=== PATIENT | male | born 1950 | race Caucasian/White ===

== ENCOUNTER 2017-10-29 15:07 | Emergency (ER) | payer MEDICARE, MEDICAID ==
--- NOTE | 2017-10-29 15:41 | ED Physician Chart ---
ED Chief Complaint/HPI - Patient Information Date Seen:: 10/29/17 Time Seen:: 15:30 Chief Complaint:: weight loss sudden Allergies:: Allergies Allergy/AdvReac Type Severity Reaction Status Date / Time No Known Allergies Allergy Verified 03/06/17 21:24 Vitals:: Vital Signs - 8 hr 10/29/17 15:26 Temp 99 F HR 69 RR 16 BP 104/69 O2 Sat % 97 Historian:: EMS Review:: Nurse's Note Reviewed <Damien Arriaga - Last Filed: 10/29/17 15:41> - Patient Information Allergies:: Allergies Allergy/AdvReac Type Severity Reaction Status Date / Time No Known Allergies Allergy Verified 03/06/17 21:24 Vitals:: Vital Signs - 8 hr 10/29/17 10/29/17 10/29/17 15:26 19:30 21:45 Temp 99 F 98.1 F 98.2 F HR 69 76 63 RR 16 18 17 BP 104/69 113/57 118/66 O2 Sat % 97 96 96 <Elvira Hernandez - Last Filed: 10/29/17 22:32> ED Review of Systems - Review of Systems General/Constitutional: No fever (hx unreliable aggitated schizophrenia) <Damien Arriaga - Last Filed: 10/29/17 15:41> ED Past Medical History - Past Medical History Past Medical History: HTN, PUD/GERD, Other (bipolar blind hx cva) <Damien Arriaga - Last Filed: 10/29/17 15:41> Family Medical History - Family Member Mother History Unknown: Yes <Damien Arriaga - Last Filed: 10/29/17 15:41> ED Physical Exam - Physical Examination General/Constitutional: Alert, No distress, Non-toxic appearing Head: Atraumatic Skin: No rash ENMT: External ears, nose nl Neck: Nontender Respiratory: Nl effort/Exclusion Cardio Vascular: RRR GI: No tenderness/rebounding/guarding : No CVA tenderness Extremities: No tenderness or effusion (episodic aggitation questionable jugement) <Damien Arriaga - Last Filed: 10/29/17 15:41> ED Labs/Radiology/EKG Results - Lab Results Results: Laboratory Tests 10/29/17 10/29/17 10/29/17 15:45 15:45 15:45 WBC 7.9 RBC 4.44 Hgb 13.6 Hct 40.5 L MCV 91.1 MCH 30.7 MCHC Differential 33.7 RDW 12.6 Plt Count 273 MPV 7.3 Neutrophils % 65.3 Lymphocytes % 24.1 Monocytes % 8.5 Eosinophils % 1.8 Basophils % 0.3 Sodium 137 Potassium 4.3 Chloride 103 Carbon Dioxide 27.1 Anion Gap 11.2 BUN 23 Creatinine 1.0 Est GFR ( Amer) > 60.0 Est GFR (Non-Af Amer) > 60.0 BUN/Creatinine Ratio 23.0 Glucose 115 H Calcium 9.2 Total Bilirubin 0.5 Direct Bilirubin 0.14 AST 18 ALT 18 Alkaline Phosphatase 86 Total Protein 6.3 Albumin 4.2 Globulin 2.1 Albumin/Globulin Ratio 2.0 H TSH 2.47 <Elvira Hernandez - Last Filed: 10/29/17 22:32> ED Septic Shock - <6hrs of presentation: Vital Signs: Vital Signs - 8 hr 10/29/17 15:26 Temp 99 F HR 69 RR 16 BP 104/69 O2 Sat % 97 <Damien Arriaga - Last Filed: 10/29/17 15:41> - . Is Septic Shock (SBP<90, OR Lactate>4 mmol\L) present?: No - <6hrs of presentation: Vital Signs: Vital Signs - 8 hr 10/29/17 10/29/17 10/29/17 15:26 19:30 21:45 Temp 99 F 98.1 F 98.2 F HR 69 76 63 RR 16 18 17 BP 104/69 113/57 118/66 O2 Sat % 97 96 96 <Elvira Hernandez - Last Filed: 10/29/17 22:32> ED Reassessment (Disposition) - Reassessment Reassessment:: Dr. Hernandez assumed care at 19:00. Dr. Hernandez spoke with Dr. Hill who thought that patient did not meet admission criteria given unremarkable labs. Dr. Hill recommended discharging patient back to SNF. Reassessment Condition:: Unchanged - Patient Disposition Discharge/Transfer:: [facility] <Elvira Hernandez - Last Filed: 10/29/17 22:32> ED Discharge Plan <Damien Arriaga - Last Filed: 10/29/17 15:41> <Elvira Hernandez - Last Filed: 10/29/17 22:32> - Patient Disposition Admit/Discharge/Transfer: PT DISCHARGED HOME Instructions: Weakness, [id number] Additional Instructions: follow up with primary medical doctor MELANIE
[2017-10-29 16:02] LABS: % BASOPHILS 0.3 % (0.0-2.0); % EOSINOPHILS 1.8 % (0.0-5.0); % LYMPHOCYTES 24.1 % (20.0-50.0); % MONOCYTES 8.5 % (2.0-10.0); % NEUTROPHILS 65.3 % (40.0-80.0); EOSINOPHILE ABSOLUTE 0.1 Th/cmm (0.1-0.4); HEMATOCRIT 40.5 % (41.0-60); HEMOGLOBIN 13.6 gm/dL (12-16); LYMPHOCYTE ABSOLUTE 1.9 Th/cmm (1.5-3.0); MEAN CELL VOLUME 91.1 fl (80-99); MEAN CORPUSCULAR HEMOGLOBIN 30.7 pg (27.0-31.0); MEAN CORPUSCULAR HGB CONC 33.7 pg (28.0-36.0); MEAN PLATELET VOLUME 7.3 fl; MONOCYTE ABSOLUTE 0.7 Th/cmm (0.3-1.0); NEUTROPHILE ABSOLUTE 5.2 Th/cmm (1.8-8.0); PLATELET COUNT 273 Th/cmm (150-400); RED BLOOD COUNT 4.44 Mil/cmm (3.80-5.80); RED CELL DISTRIBUTION WIDTH 12.6 % (11.5-20.0); WHITE BLOOD COUNT 7.9 Th/cmm (4.8-10.8)
[2017-10-29 16:18] LABS: ALBUMIN 4.2 gm/dL (4.2-5.5); ALKALINE PHOSPHATASE 86 U/L (34-104); ANION GAP 11.2 (7.0-16.0); BILIRUBIN,DIRECT 0.14 mg/dL (0.0-0.2); BILIRUBIN,TOTAL 0.5 mg/dL (0.3-1.0); BUN - UREA NITROGEN 23 mg/dL (7-25); CALCIUM SERUM 9.2 mg/dL (8.6-10.3); CARBON DIOXIDE 27.1 mEq/L (21.0-31.0); CHLORIDE 103 mEq/L (98-107); GFR AFRICAN-AMERICAN > 60.0 ml/min (>90); GFR NON AFRICAN-AMERICAN > 60.0 ml/min; GLUCOSE 115 mg/dL (70-105); POTASSIUM SERUM 4.3 mEq/L (3.5-5.1); SGOT 18 U/L (13-39); SGPT/ALT 18 U/L (7-52); SODIUM SERUM 137 mEq/L (136-145); TOTAL PROTEIN,SERUM 6.3 gm/dL (6.0-8.3)
== END 2017-10-29 19:45 | disposition home or self-care (01) ==
LOC: ER 15:07
DX: R63.4 Abnormal weight loss (principal); I10 Essential (primary) hypertension; K21.9 Gastro-esophageal reflux disease without esophagitis
CPT/HCPCS: 36415-UA; 71045-TC; 80048-TC; 80076-TC; 84439-90; 84443-TC; 85025-TC; Z7502

== ENCOUNTER 2017-10-31 20:52 | Inpatient (IN) | payer MEDICARE, MEDICAID ==
--- NOTE | 2017-10-31 21:24 | ED Physician Chart ---
ED Chief Complaint/HPI - Patient Information Date Seen:: 10/31/17 Time Seen:: 21:15 Chief Complaint:: aggressive behavior History of Present Illness:: Patient reportedly was striking out at staff at his extended care facility. Allergies:: Allergies Allergy/AdvReac Type Severity Reaction Status Date / Time No Known Allergies Allergy Verified 10/31/17 20:54 Vitals:: Vital Signs - 8 hr 10/31/17 20:54 Temp 98.1 F HR 62 RR 18 BP 125/70 O2 Sat % 99 Historian:: EMS Review:: Transfer documents Reviewed ED Review of Systems - Review of Systems General/Constitutional: No fever, No chills, No weight loss, No weakness, No diaphoresis, No edema, No loss of appetite Skin: No skin lesions, No rash, No bruising Head: No headache, No light-headedness Eyes: No loss of vision, No pain, No diplopia ENT: No earache, No nasal drainage, No sore throat, No tinnitus Neck: No neck pain, No swelling, No thyromegaly, No stiffness, No mass noted Cardio Vascular: No chest pain, No palpitations, No PND, No orthopnea, No edema Pulmonary: No SOB, No cough, No sputum, No wheezing GI: No nausea, No vomiting, No diarrhea, No pain, No melena, No hematochezia, No constipation, No hematemesis G/U: No dysuria, No frequency, No hematuria Musculoskeletal: No bone or joint pain, No back pain, No muscle pain Endocrine: No polyuria, No polydipsia Psychiatric: Prior psych history Hematopoietic: No bruising, No lymphadenopathy Allergic/Immuno: No urticaria, No angioedema Neurological: No syncope, No focal symptoms, No weakness, No paresthesia, No headache, No seizure, No dizziness, No confusion, No vertigo ED Past Medical History - Past Medical History Past Medical History: HTN, PUD/GERD, Seizures, Other (blind; hyperlipidemia; depression; psychosis; dysphagia) Family History: Other (unknown) Social History: Care Facility Surgical History: other (unknown) Psychiatricy History: Depression, Other (psychosis) Medication: Reviewed Family Medical History - Family Member Mother History Unknown: Yes ED Physical Exam - Physical Examination Other Gen/Cons comments:: Chronically ill-appearing; nonverbal Head: Atraumatic Eyes: Lids, conjuctiva normal Other Eyes comments:: Bilateral cataracts Skin: Nl inspection, No rash ENMT: External ears, nose nl Other ENMT comments:: Edentulous Neck: No nuchal rigidity Respiratory: Nl effort/Exclusion, Clear to Auscultation Other Cardio Vascular comments:: Heart sounds inaudible; pulse regular GI: No tenderness/rebounding/guarding, Nondistended, No mass/bruits : No CVA tenderness Extremities: Normal digits & nails Neuro/Psych: No focal deficits ED Labs/Radiology/EKG Results - Lab Results Results: Laboratory Results - last 24 hr 10/31/17 10/31/17 10/31/17 21:41 21:41 21:41 WBC 6.9 RBC 4.53 Hgb 14.0 Hct 41.6 MCV 91.8 MCH 30.9 MCHC Differential 33.6 RDW 12.9 Plt Count 252 MPV 7.5 Neutrophils % 60.2 Lymphocytes % 29.2 Monocytes % 7.7 Eosinophils % 2.5 Basophils % 0.4 Sodium 138 Potassium 4.0 Chloride 102 Carbon Dioxide 29.4 Anion Gap 10.6 BUN 19 Creatinine 0.7 Est GFR ( Amer) > 60.0 Est GFR (Non-Af Amer) > 60.0 BUN/Creatinine Ratio 27.1 Glucose 105 Calcium 9.4 Total Bilirubin 0.4 AST 24 ALT 21 Alkaline Phosphatase 90 Troponin I Total Protein 6.6 Albumin 4.4 Globulin 2.2 Albumin/Globulin Ratio 2.0 H Triglycerides 125 Cholesterol 125 LDL Cholesterol Direct 51 L HDL Cholesterol 53 Valproic Acid 43.1 L 10/31/17 21:41 WBC RBC Hgb Hct MCV MCH MCHC Differential RDW Plt Count MPV Neutrophils % Lymphocytes % Monocytes % Eosinophils % Basophils % Sodium Potassium Chloride Carbon Dioxide Anion Gap BUN Creatinine Est GFR ( Amer) Est GFR (Non-Af Amer) BUN/Creatinine Ratio Glucose Calcium Total Bilirubin AST ALT Alkaline Phosphatase Troponin I 0.05 Total Protein Albumin Globulin Albumin/Globulin Ratio Triglycerides Cholesterol LDL Cholesterol Direct HDL Cholesterol Valproic Acid - EKG Interpretations Rate & Rhythm: NSR with a rate of 51 [place]: normal Comments:: Q waves in leads II, II, avF and inverted T waves in the anterior leads. ED Assessment - Assessment General Assessment: I informed Dr. Hill by phone of the patient's abnormal EKG but he wanted the patient admitted to [facility] anyway. ED Septic Shock - . Is Septic Shock (SBP<90, OR Lactate>4 mmol\L) present?: No - <6hrs of presentation: Vital Signs: Vital Signs - 8 hr 10/31/17 20:54 Temp 98.1 F HR 62 RR 18 BP 125/70 O2 Sat % 99 ED Reassessment (Disposition) - Reassessment Reassessment Condition:: Unchanged - Diagnosis Diagnosis:: Agitation; dementia; blindness; abnormal EKG - Patient Disposition Admitted to:: [facility] Spoke to:: Wilfredo Hill Admitting Medical Physician:: Wilfredo Hill Admitting Psych Physician:: Cordelia Wild Condition at Disposition:: Stable, Unchanged
[2017-10-31 21:49] LABS: % BASOPHILS 0.4 % (0.0-2.0); % EOSINOPHILS 2.5 % (0.0-5.0); % LYMPHOCYTES 29.2 % (20.0-50.0); % MONOCYTES 7.7 % (2.0-10.0); % NEUTROPHILS 60.2 % (40.0-80.0); EOSINOPHILE ABSOLUTE 0.2 Th/cmm (0.1-0.4); HEMATOCRIT 41.6 % (41.0-60); MEAN CELL VOLUME 91.8 fl (80-99); MEAN CORPUSCULAR HEMOGLOBIN 30.9 pg (27.0-31.0); MEAN CORPUSCULAR HGB CONC 33.6 pg (28.0-36.0); MEAN PLATELET VOLUME 7.5 fl; MONOCYTE ABSOLUTE 0.5 Th/cmm (0.3-1.0); NEUTROPHILE ABSOLUTE 4.2 Th/cmm (1.8-8.0); PLATELET COUNT 252 Th/cmm (150-400); RED BLOOD COUNT 4.53 Mil/cmm (3.80-5.80); RED CELL DISTRIBUTION WIDTH 12.9 % (11.5-20.0); WHITE BLOOD COUNT 6.9 Th/cmm (4.8-10.8)
[2017-10-31 22:08] LABS: ALBUMIN 4.4 gm/dL (4.2-5.5); ALKALINE PHOSPHATASE 90 U/L (34-104); ANION GAP 10.6 (7.0-16.0); BILIRUBIN,TOTAL 0.4 mg/dL (0.3-1.0); BUN - UREA NITROGEN 19 mg/dL (7-25); CALCIUM SERUM 9.4 mg/dL (8.6-10.3); CARBON DIOXIDE 29.4 mEq/L (21.0-31.0); CHLORIDE 102 mEq/L (98-107); CHOLESTEROL 125 mg/dL (<200); CREATININE - SERUM 0.7 mg/dL (0.7-1.3); GFR AFRICAN-AMERICAN > 60.0 ml/min (>90); GFR NON AFRICAN-AMERICAN > 60.0 ml/min; GLUCOSE 105 mg/dL (70-105); HDL -HIGH DENSITY LIPOPROTEIN 53 mg/dL (23-92); SGOT 24 U/L (13-39); SGPT/ALT 21 U/L (7-52); SODIUM SERUM 138 mEq/L (136-145); TOTAL PROTEIN,SERUM 6.6 gm/dL (6.0-8.3); TRIGLYCERIDES 125 mg/dL (<150)
[2017-11-01] MEDS ORDERED: Magnesium Hydroxide (MOM) 30 mL UDC PO PRN (02:17)
[2017-11-01] MEDS ORDERED: Multivitamin Tab PO SCH (09:00)
--- NOTE | 2017-11-01 09:31 | History and Physical ---
History of Present Illness - HPI Chief Complaint: Sent to emergency room at [facility] for aggressive behavior and hitting staff. HPI: 67-year-old resident of [facility] sent to emergency room after patient was agitated and hitting staff. Patient was seen by emergency room MD and subsequently admitted for further psychiatric care. 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 Psychiatric disorder. Family Medical History - Family Member Mother History Unknown: Yes Ethnicity: Non- Social History Smoke: No Alcohol: None Drugs: None Lives: [place] - Medications Home Medications: Home Medication Medication Instructions Recorded Type Acetaminophen 650 mg PO Q4HR PRN 03/06/17 History Isosorbide Mononitrate [Imdur] 60 mg PO DAILY 03/06/17 History Multivitamin with Minerals 1 tab PO DAILY 03/06/17 History [Multiple Vitamin] amLODIPine Besylate [Norvasc*] 10 mg PO DAILY 03/06/17 History Atorvastatin Calcium [Lipitor] 40 mg PO HS tab 03/27/17 Rx Magnesium Hydroxide [Milk of 30 ml PO HS PRN udc 03/27/17 Rx Magnesia] Pantoprazole [Protonix] 40 mg PO DAILY ect 03/27/17 Rx Propranolol HCl [Inderal*] 5 mg PO BID tab 03/27/17 Rx Divalproex ER [Depakote ER] 250 mg PO BID 10/29/17 History Docusate Sodium 100 mg PO BID 10/29/17 History Sennosides A and B [Senna] 2 tab PO HS 10/31/17 History - Allergies Allergies/Adverse Reactions: Allergies Allergy/AdvReac Type Severity Reaction Status Date / Time No Known Allergies Allergy Verified 10/31/17 20:54 Review of Systems - Review of Systems Constitutional: Report: No Significant Eyes: Report: No Significant ENT: Report: No Significant Respiratory: Report: No Significant Cardiovascular: Report: No Significant Gastrointestinal: Report: No Significant Genitourinary: Report: No Significant Musculoskeletal: Report: No Significant Skin: Report: No Significant Neurological: Report: No Significant Physical Exam - Physical Exam HEENT: Report: Ears Nose Throat within normal limits, Pharnyx within normal limits Neck: Report: Within normal limits, Thyromegaly Cardiovascular Systems: Report: +s1/s2 noted, Regular, Rate and Rhythm, no murmurs noted Respiratory: Report: Breath Sounds are within normal limits, Clear to Auscultation of lung scott Abdomen: Report: Non-tender to palpation, Bowel Sounds are within normal limits Back: Report: Inspection of back is within normal limits. Extremities: Report: Non-tender to palpation., Patient had full range of motion Skin: Report: Color of skin is within normal limits Neuro/Psych: Report: CN II-XII intact, No motor deficit, No sensory deficit - Lab Results All Lab Results last 24 hours: Laboratory Results - last 24 hr 10/31/17 10/31/17 10/31/17 21:41 21:41 21:41 WBC 6.9 RBC 4.53 Hgb 14.0 Hct 41.6 MCV 91.8 MCH 30.9 MCHC Differential 33.6 RDW 12.9 Plt Count 252 MPV 7.5 Neutrophils % 60.2 Lymphocytes % 29.2 Monocytes % 7.7 Eosinophils % 2.5 Basophils % 0.4 Sodium 138 Potassium 4.0 Chloride 102 Carbon Dioxide 29.4 Anion Gap 10.6 BUN 19 Creatinine 0.7 Est GFR ( Amer) > 60.0 Est GFR (Non-Af Amer) > 60.0 BUN/Creatinine Ratio 27.1 Glucose 105 Calcium 9.4 Total Bilirubin 0.4 AST 24 ALT 21 Alkaline Phosphatase 90 Troponin I Total Protein 6.6 Albumin 4.4 Globulin 2.2 Albumin/Globulin Ratio 2.0 H Triglycerides 125 Cholesterol 125 LDL Cholesterol Direct 51 L HDL Cholesterol 53 TSH 1.98 Valproic Acid RPR 10/31/17 10/31/17 10/31/17 21:41 21:41 21:41 WBC RBC Hgb Hct MCV MCH MCHC Differential RDW Plt Count MPV Neutrophils % Lymphocytes % Monocytes % Eosinophils % Basophils % Sodium Potassium Chloride Carbon Dioxide Anion Gap BUN Creatinine Est GFR ( Amer) Est GFR (Non-Af Amer) BUN/Creatinine Ratio Glucose Calcium Total Bilirubin AST ALT Alkaline Phosphatase Troponin I 0.05 Total Protein Albumin Globulin Albumin/Globulin Ratio Triglycerides Cholesterol LDL Cholesterol Direct HDL Cholesterol TSH Valproic Acid 43.1 L RPR NONREACTIVE - Assessment Assessment: Acute exacerbation of psychotic disorder. Hypertension. Seizure disorder. Hyperlipidemia. DJD. Fall risk. Abnormal EKG without chest pain and normal cardiac enzymes. - Plan Plan: Psychiatric evaluation and management deferred to psychiatrist. Watch for signs symptoms of cardiovascular event. Antihypertensive medicine. Statin. General nursing care. Symptoms management. Seizure medication. Seizure precautions. Fall precautions. Continue current treatment plan as ordered. We will continue to follow this patient's during the stay in the hospital. I sincerely thank you Dr. Duvall for giving me the opportunity to participate patient of yours.
[2017-11-01] MEDS: Multivitamin w/ Minerals Tab PO SCH (09:52)
[2017-11-01] MEDS: Pantoprazole 40 mg EC Tab PO SCH (09:52)
--- NOTE | 2017-11-01 17:42 | History & Physical ---
ADMIT DATE: 11/01/2017 IDENTIFYING INFORMATION: The patient is a 67-year-old male. CHIEF COMPLAINT: No answer. HISTORY OF PRESENT ILLNESS: The patient was sent from [facility] because of agitation, uncontrollable behavior as irritability, aggressive behavior. The patient himself was a poor historian. He thought he was 54 years of age. He was talking to himself, was unable to answer my questions. He is well well-known case to me. I have seen him before in his previous admission as well as [facility]. I have been following up on him. The patient himself was not a good historian, internally preoccupied. PAST PSYCHIATRIC HISTORY: He has prior admissions to this facility for similar reasons. He is not a good historian, unable to get more information from him. MEDICAL HISTORY: Deferred to the medical doctor. Please refer to the medication list for his medication. He is on psychotropic with Depakote 250 mg twice a day. FAMILY AND SOCIAL HISTORY: Unobtainable. He has been staying at [facility]___ [facility]. MENTAL STATUS EXAMINATION: The patient is appropriately dressed, not well groomed. He was in bed. He was staring around, responding to internal stimuli, talking to himself, unable to tell me the date, where he is, why he is here. He believes he was 54 years of age. Unable to formulate a safe plan for self-care, appear to be responding to internal stimuli. His long and short term is poor. Insight and judgment is impaired. IMPRESSION: AXIS I: Psychosis, not otherwise specified, dementia, ____. MEDICAL DIAGNOSES: Deferred to the medical doctor. His assets, he is accepting treatment. Negative poor coping skills. INITIAL TREATMENT PLAN: The patient will be started on medication. We will adjust medication as needed. We will do group therapy, milieu therapy, and individual therapy. ESTIMATED LENGTH OF STAY: 2-7 days. DISCHARGE CRITERIA: Decreasing agitation, psychosis. After discharge, outpatient treatment. JOB# [id number]
[2017-11-02] MEDS: Multivitamin w/ Minerals Tab PO SCH (09:21)
[2017-11-02] MEDS: Pantoprazole 40 mg EC Tab PO SCH (09:22)
[2017-11-02 19:12] LABS: A1C % 5.5 % (4.0-6.0)
--- NOTE | 2017-11-03 01:54 | Progress Notes ---
DATE: 11/02/2017 SUBJECTIVE: The patient is coming in from [place], agitation, uncontrollable behaviors, irritability, aggressive behaviors, poor historian. On [id number], the patient in a position. When I asked him why he is here, he states " ," seems to be religiously preoccupied, making some samaritan symbolic gestures. Staff noting he remains isolative, withdrawn, poorly oriented, confused and mostly staying to himself, sometimes aggressive, restless, sleeping fairly well. Needing prompting for ADLs, eating. ASSESSMENT: The patient remains symptomatic, attempting to hit staff at the [facility], still remains unruly, impulsive and unpredictable. Medications were noted including doses and frequencies. PLAN: We will continue to monitor, adjust and titrate medications. JOB# [id number]
[2017-11-03] MEDS: Pantoprazole 40 mg EC Tab PO SCH (09:56)
[2017-11-03] MEDS: Multivitamin w/ Minerals Tab PO SCH (09:56)
--- NOTE | 2017-11-03 17:30 | Progress Notes ---
DATE: 11/03/2017 SUBJECTIVE: The patient coming in from [place], agitated, uncontrollable behaviors, irritability, aggressive behaviors. The patient is rude stating "don't talk with me" when I asked him questions. When I asked him why he is here, he states "I don't know." Mostly in his bed, unruly, verbally abusive, accosting me on exam. Poorly oriented, cursing. Medications were noted including doses and frequencies. ASSESSMENT AND PLAN: We will monitor. We will follow up and will titrate medications. Medications were noted. No overt side effects. JOB# [id number]
[2017-11-04] MEDS: Pantoprazole 40 mg EC Tab PO SCH (10:27)
[2017-11-04] MEDS: Multivitamin w/ Minerals Tab PO SCH (10:30)
--- NOTE | 2017-11-04 21:37 | Progress Notes ---
DATE: 11/04/2017 SUBJECTIVE: Case discussed with staff of the patient, reviewed records. The patient continues to be rambling, continues to be irritable, aggressive, making inappropriate statements, sometimes rude, unable to state a safe plan for self-care. Continues to be unable to participate in meaningful conversation or make safe plan for self-care. Continues to have poor insight. He is on Depakote 250 mg twice a day and he is confused. I will be initiating Abilify on him. Discussed side effects and we will continue to work with the patient in group therapy, milieu therapy, and adjust the medication as needed. JOB# [id number]
[2017-11-05] MEDS: Pantoprazole 40 mg EC Tab PO SCH (09:50)
[2017-11-05] MEDS: Multivitamin w/ Minerals Tab PO SCH (09:50)
--- NOTE | 2017-11-05 22:17 | Progress Notes ---
DATE: 11/05/2017 Case was discussed with staff of the patient, reviewed records. The patient continues to be internally preoccupied, looking disheveled, disorganized. Continues to be unable to make safe plan for self-care. Continues to have poor insight. I did add Abilify to his medication yesterday because of his psychotic behavior and disorganized behavior. He is on Depakote and I will be checking his Depakote level and still unable to participate in meaningful conversation. No side effects with the medication, no sedation, no nausea, no extrapyramidal symptoms and we will continue to work with the patient in group therapy, milieu therapy, and adjust medication as needed. JOB# [id number]
[2017-11-06] MEDS: Pantoprazole 40 mg EC Tab PO SCH (08:51)
[2017-11-06] MEDS: Multivitamin w/ Minerals Tab PO SCH (08:51)
--- NOTE | 2017-11-06 23:50 | Progress Notes ---
DATE: 11/06/2017 Case was discussed with staff of the patient, reviewed records. The patient continues to stay in his room, internally preoccupied. Unable to answer questions such as date, where he is, why he is here, gets easily agitated, irritable. He is compliant with the medication with no side effects, no sedation, no nausea, no extrapyramidal symptoms. Continues to have poor insight. His lab work showed CBC within normal range. Chemistry panel within normal range and LDL cholesterol is low. Depakote level is 43.1 which is within acceptable range since he takes it for mood and behavior rather than seizure disorder. RPR is nonreactive. We will continue outpatient group therapy, milieu therapy, and adjust the medications as needed. JOB# [id number]
[2017-11-07] MEDS: Multivitamin w/ Minerals Tab PO SCH (08:51)
[2017-11-07] MEDS: Pantoprazole 40 mg EC Tab PO SCH (08:52)
--- NOTE | 2017-11-07 15:59 | Progress Notes ---
DATE: 11/07/2017 SUBJECTIVE: Case was discussed with staff of the patient, reviewed records. The patient continues to stay in bed, unpredictable, impulsive, unable to tell me the date, sometimes easily agitated. He is sleeping well, eating well. He is compliant with the medication with no side effects, no sedation, no nausea, no extrapyramidal symptoms. Started on Abilify and we will continue to work with the patient. The patient is confused, demented. No side effects. OBJECTIVE: Diagnosis is nausea or extrapyramidal symptoms and his lab work shows CBC within normal range. Chemistry panel with a albumin and the rest within normal range. Lipid profile with low, LDL cholesterol. Depakote level 43.1. RPR nonreactive. We will continue the patient in group therapy, milieu therapy, and adjust medications as needed. JOB# [id number]
[2017-11-08] MEDS: Multivitamin w/ Minerals Tab PO SCH (09:07)
[2017-11-08] MEDS: Pantoprazole 40 mg EC Tab PO SCH (09:08)
--- NOTE | 2017-11-08 22:26 | Progress Notes ---
DATE: 11/08/2017 SUBJECTIVE: Case was discussed with staff of the patient, reviewed records. The patient continues to be unpredictable and impulsive. He insisted on getting naked, throwing his diapers on the floor, hard to redirect, confused, unable to engage in a meaningful conversation, unable to tell me the date, where he is, why he is here. He continues to have poor insight. I will be increasing Abilify to 5 mg a day and so far no side effects, no sedation, no nausea, and no extrapyramidal symptoms. We will continue to work with the patient in group therapy, milieu therapy, and adjust the medications as needed. JOB# [id number]
[2017-11-09] MEDS: Multivitamin w/ Minerals Tab PO SCH (09:19)
[2017-11-09] MEDS: Pantoprazole 40 mg EC Tab PO SCH (09:20)
[2017-11-09 15:20] LABS: % BASOPHILS 0.5 % (0.0-2.0); % EOSINOPHILS 0.7 % (0.0-5.0); % LYMPHOCYTES 14.7 % (20.0-50.0); % NEUTROPHILS 78.1 % (40.0-80.0); EOSINOPHILE ABSOLUTE 0.1 Th/cmm (0.1-0.4); HEMATOCRIT 40.2 % (41.0-60); HEMOGLOBIN 13.5 gm/dL (12-16); LYMPHOCYTE ABSOLUTE 1.3 Th/cmm (1.5-3.0); MEAN CELL VOLUME 91.8 fl (80-99); MEAN CORPUSCULAR HEMOGLOBIN 30.9 pg (27.0-31.0); MEAN CORPUSCULAR HGB CONC 33.7 pg (28.0-36.0); MEAN PLATELET VOLUME 7.8 fl; MONOCYTE ABSOLUTE 0.5 Th/cmm (0.3-1.0); NEUTROPHILE ABSOLUTE 6.9 Th/cmm (1.8-8.0); PLATELET COUNT 211 Th/cmm (150-400); RED BLOOD COUNT 4.38 Mil/cmm (3.80-5.80); WHITE BLOOD COUNT 8.8 Th/cmm (4.8-10.8)
[2017-11-09 15:37] LABS: ALB/GLOB RATIO 1.7 (1.0-1.8); ALKALINE PHOSPHATASE 69 U/L (34-104); ANION GAP 10.3 (7.0-16.0); BILIRUBIN,TOTAL 0.7 mg/dL (0.3-1.0); BUN - UREA NITROGEN 24 mg/dL (7-25); CALCIUM SERUM 9.3 mg/dL (8.6-10.3); CARBON DIOXIDE 31.1 mEq/L (21.0-31.0); CHLORIDE 100 mEq/L (98-107); CREATININE - SERUM 0.8 mg/dL (0.7-1.3); GFR AFRICAN-AMERICAN > 60.0 ml/min (>90); GFR NON AFRICAN-AMERICAN > 60.0 ml/min; GLUCOSE 132 mg/dL (70-105); POTASSIUM SERUM 4.4 mEq/L (3.5-5.1); SGOT 18 U/L (13-39); SGPT/ALT 23 U/L (7-52); SODIUM SERUM 137 mEq/L (136-145); TOTAL PROTEIN,SERUM 6.3 gm/dL (6.0-8.3)
--- NOTE | 2017-11-09 20:12 | Progress Notes ---
DATE: SUBJECTIVE: Chart reviewed and the patient interviewed. Also discussed the patient's condition with the staff and reviewed records and labs. Dr. Wagner covering for Dr. Wild. The patient is still confused. The patient also still wants to be left alone and isolated. The patient also is still having unpredictable behavior. The patient also is depressed. He also is still uncooperative with his care, especially when staff tries to help him with his ADLs. Otherwise, the patient is compliant with taking his medications and no side effect of Abilify or Depakote. ASSESSMENT: The patient is still agitated and paranoid. TREATMENT PLAN: Continue to monitor his behavior and his condition closely. Also, continue to work on his confusion and adjusting psychotropic medications and continue to follow up. JOB# [id number]
== END 2017-11-09 20:11 | disposition short-term general hospital (02) | DRG 885 ==
LOC: ER 20:52 → GERO2 23:03
PROVIDERS: ADMIT Psychiatry & Neurology Psychiatry; ATTEND Psychiatry & Neurology Psychiatry
DX: F23 Brief psychotic disorder (principal); I10 Essential (primary) hypertension; K21.9 Gastro-esophageal reflux disease without esophagitis; E78.5 Hyperlipidemia, unspecified; R13.10 Dysphagia, unspecified; F03.90 Unspecified dementia, unspecified severity, without behavioral disturbance, psychotic disturbance, mood disturbance, and anxiety; H54.8 Legal blindness, as defined in USA; M19.90 Unspecified osteoarthritis, unspecified site; G40.909 Epilepsy, unspecified, not intractable, without status epilepticus; Z91.81 History of falling
CPT/HCPCS: 36415-UA; 80053-TC; 80061-TC; 80164-TC; 82948-90; 83036-90; 84443-TC; 84484-TC; 85025-TC; 86592-TC; 93005; 94760; J7030; Z7610

== ENCOUNTER 2017-11-09 20:12 | Inpatient (IN) | payer MEDICARE, MEDICAID ==
[2017-11-09] MEDS ORDERED: Albumin 5% 12.5gm/250mL 12.5 GM/250 ML BTL IV ONE ×2 (20:47→20:50)
[2017-11-09] MEDS ORDERED: Sodium Chloride 0.9% 1,000 ML IV SCH (21:00)
[2017-11-09 21:25] LABS: % BASOPHILS 0.1 % (0.0-2.0); % EOSINOPHILS 0.1 % (0.0-5.0); % LYMPHOCYTES 9.2 % (20.0-50.0); % MONOCYTES 2.9 % (2.0-10.0); % NEUTROPHILS 87.7 % (40.0-80.0); HEMATOCRIT 39.9 % (41.0-60); HEMOGLOBIN 13.3 gm/dL (12-16); LYMPHOCYTE ABSOLUTE 0.7 Th/cmm (1.5-3.0); MEAN CELL VOLUME 91.3 fl (80-99); MEAN CORPUSCULAR HEMOGLOBIN 30.5 pg (27.0-31.0); MEAN CORPUSCULAR HGB CONC 33.4 pg (28.0-36.0); MEAN PLATELET VOLUME 7.8 fl; MONOCYTE ABSOLUTE 0.2 Th/cmm (0.3-1.0); NEUTROPHILE ABSOLUTE 7.1 Th/cmm (1.8-8.0); PLATELET COUNT 199 Th/cmm (150-400); RED BLOOD COUNT 4.37 Mil/cmm (3.80-5.80); RED CELL DISTRIBUTION WIDTH 12.7 % (11.5-20.0)
[2017-11-09 21:40] LABS: ALB/GLOB RATIO 1.8 (1.0-1.8); ALBUMIN 3.9 gm/dL (4.2-5.5); ALKALINE PHOSPHATASE 66 U/L (34-104); ANION GAP 12.1 (7.0-16.0); BILIRUBIN,TOTAL 0.7 mg/dL (0.3-1.0); BUN - UREA NITROGEN 24 mg/dL (7-25); CALCIUM SERUM 9.3 mg/dL (8.6-10.3); CARBON DIOXIDE 29.2 mEq/L (21.0-31.0); CHLORIDE 102 mEq/L (98-107); CHOLESTEROL 101 mg/dL (<200); CREATININE - SERUM 0.7 mg/dL (0.7-1.3); GFR AFRICAN-AMERICAN > 60.0 ml/min (>90); GFR NON AFRICAN-AMERICAN > 60.0 ml/min; GLUCOSE 122 mg/dL (70-105); HDL -HIGH DENSITY LIPOPROTEIN 44 mg/dL (23-92); POTASSIUM SERUM 4.3 mEq/L (3.5-5.1); SGOT 17 U/L (13-39); SGPT/ALT 22 U/L (7-52); SODIUM SERUM 139 mEq/L (136-145); TOTAL PROTEIN,SERUM 6.1 gm/dL (6.0-8.3); TRIGLYCERIDES 41 mg/dL (<150)
[2017-11-09 23:18] VITALS: BP 100/51
[2017-11-10] MEDS ORDERED: Norepinephrine 4 mg/4mL Vial IV ONE (00:56)
[2017-11-10] MEDS: Sodium Chloride 0.9% 1,000 ML IV SCH ×2 (02:30→16:58)
--- NOTE | 2017-11-10 04:17 | Consultation ---
DATE OF CONSULTATION: 11/09/2017 HISTORY OF PRESENT ILLNESS: This 67-year-old male was seen and examined. The patient is in ICU. The patient was in [facility] for psych problem, agitation and from there he was transferred to the ICU with hypotension and bradycardia. There is no history available from the patient. On questioning him, he denies any chest pain. There is no shortness of breath, no history of PND, no history of orthopnea, no history of swelling over the legs. No history of intermittent claudication. No history of cough, no history of fever, no history of hemoptysis, no history of dizziness. No history of syncope, no history of seizures, no history of abdominal pain. No history of nausea or vomiting. No history of hematemesis. No history of melena, no history of bleeding per rectum. No history of change in bowel habits. PHYSICAL EXAMINATION: VITAL SIGNS: Heart rate 150, blood pressure was 120/62. The patient is on IV Levophed. SKIN: Normal. HEAD: Normocephalic. EYES: Conjunctivae were pink. There is no icterus in the eyes. Pupils reacting to light. NECK: There were no increased jugular venous distention, no thyromegaly, no lymphadenopathy. Carotids equal both sides. CHEST: Bilaterally symmetrical, moved well with respiration. Respiratory movements equal on both sides. Trachea is central. There is note to percussion. Breath sounds, no rales, no rhonchi. CARDIOVASCULAR SYSTEM: PMI not well localized. There is no pulsation or thrill. No parasternal heave. S1 normal, S2 physiologic. There was no S3, no rub. ABDOMEN: Soft, no tenderness, no rigidity, no guarding and no organomegaly. Bowel sounds normal. EXTREMITIES: No edema, no calf tenderness. Peripheral pulses slightly diminished. LABORATORY DATA: EKG revealed sinus rhythm, symmetrical T-wave inversion in the precordial leads may be due to ischemia. On reviewing the lab, troponin was 0.02. Sodium 139, potassium 4.3, chloride 102, CO2 of 29.2, BUN 24, creatinine 0.7, glucose 122, calcium 9.3, protein 6.1, albumin 3.9, globulin 2.2, total bilirubin 0.7, AST 17, SGPT 22, alkaline phosphatase 66. Cholesterol was 101, triglycerides 41, HDL cholesterol 44, LDL 40. CBC revealed WBC of 8, hematocrit 39.9, platelet count was 199, TSH 1.69. IMPRESSION: Hypotension, bradycardia, possibly coronary artery disease, psych problems. DISCUSSION SESSION: Suggest to continue present management. We will get serial EKGs, serial troponin levels, echocardiogram to evaluate left ventricular function and valvular structure. We will add aspirin to the regimen. Increase IV fluids to 100 mL an hour normal saline. Further recommendation will be made depending on the rest of the tests available. JOB# [id number]
[2017-11-10 05:01] LABS: EOSINOPHILE ABSOLUTE 0.1 Th/cmm (0.1-0.4); LYMPHOCYTE ABSOLUTE 1.7 Th/cmm (1.5-3.0); RED CELL DISTRIBUTION WIDTH 13.2 % (11.5-20.0)
[2017-11-10 05:09] LABS: % BASOPHILS 0.5 % (0.0-2.0); % LYMPHOCYTES 19.9 % (20.0-50.0); % MONOCYTES 6.4 % (2.0-10.0); % NEUTROPHILS 72.2 % (40.0-80.0); HEMATOCRIT 37.1 % (41.0-60); HEMOGLOBIN 12.6 gm/dL (12-16); MEAN CELL VOLUME 91.1 fl (80-99); MEAN CORPUSCULAR HEMOGLOBIN 30.9 pg (27.0-31.0); MEAN CORPUSCULAR HGB CONC 33.9 pg (28.0-36.0); MEAN PLATELET VOLUME 8.4 fl; MONOCYTE ABSOLUTE 0.5 Th/cmm (0.3-1.0); NEUTROPHILE ABSOLUTE 6.1 Th/cmm (1.8-8.0); PLATELET COUNT 190 Th/cmm (150-400); RED BLOOD COUNT 4.07 Mil/cmm (3.80-5.80); WHITE BLOOD COUNT 8.4 Th/cmm (4.8-10.8)
[2017-11-10 05:23] LABS: ALBUMIN 3.8 gm/dL (4.2-5.5); ALKALINE PHOSPHATASE 57 U/L (34-104); ANION GAP 10.8 (7.0-16.0); BILIRUBIN,TOTAL 0.8 mg/dL (0.3-1.0); BUN - UREA NITROGEN 26 mg/dL (7-25); CALCIUM SERUM 8.5 mg/dL (8.6-10.3); CARBON DIOXIDE 23.5 mEq/L (21.0-31.0); CHLORIDE 107 mEq/L (98-107); CREATININE - SERUM 0.7 mg/dL (0.7-1.3); GFR AFRICAN-AMERICAN > 60.0 ml/min (>90); GFR NON AFRICAN-AMERICAN > 60.0 ml/min; GLUCOSE 110 mg/dL (70-105); POTASSIUM SERUM 4.3 mEq/L (3.5-5.1); SGOT 16 U/L (13-39); SGPT/ALT 17 U/L (7-52); SODIUM SERUM 137 mEq/L (136-145); TOTAL PROTEIN,SERUM 5.7 gm/dL (6.0-8.3)
--- NOTE | 2017-11-10 07:56 | Diagnostic Imaging Report ---
CHEST X-RAY: AP view INDICATION: Hypotension COMPARISON: None FINDINGS: Right IJ line is seen with tip in the SVC. Chronic COPD lung changes are noted with no focal consolidation or effusions. Heart size is normal. There may be minimal atherosclerosis of the aortic arch. Degenerative changes of the spine are noted. No evidence of pneumothorax. IMPRESSION: Chronic lung changes and probable COPD. No focal consolidation identified. Right IJ line with tip in the region of the SVC.
--- NOTE | 2017-11-10 08:00 | Diagnostic Imaging Report ---
KUB single view HISTORY: Nausea and vomiting. COMPARISON: None FINDINGS: Diffuse gaseous filled loops of bowel are noted including small and large bowel loops. Nonspecific calcifications of the left upper quadrant are noted. Degenerative changes of the spine are noted. Atherosclerosis is noted. IMPRESSION: Diffuse distended gas-filled loops of both small and large bowel. Findings may be due to ileus or infectious or inflammatory process. A distal obstructive process is less likely but cannot be excluded. Clinical correlation and follow-up is recommended. Nonspecific left upper quadrant calcifications. CT would further clarify.
[2017-11-10] MEDS: Aspirin 81mg Chewable Tab PO SCH (08:25)
[2017-11-10] MEDS ORDERED: Magnesium Hydroxide (MOM) 30 mL UDC PO PRN (08:30)
[2017-11-10] MEDS ORDERED: Probiotic Screen MC PRN (08:46)
[2017-11-10] MEDS: Multivitamin w/ Minerals Tab PO SCH (09:00)
[2017-11-10] MEDS ORDERED: Non-Formulary Item 1 EA (Docusate Sodium [Docusate Sodium] 100 MG) PO SCH (09:00)
[2017-11-10] MEDS: Lactobacillus Rhamnosus GG 15 Billion CFU CAP.SPRINK PO SCH (09:00)
[2017-11-10] MEDS: Pantoprazole 40 mg EC Tab PO SCH (09:01)
--- NOTE | 2017-11-10 10:08 | History & Physical ---
ADMIT DATE: 11/09/2017 REASON FOR ADMISSION: Hypotension. HISTORY OF PRESENTING ILLNESS: A 67-year-old gentleman, currently in the Geropsych Unit for agitation and bizarre behavior, inability to corporate, found to have hypotension, rapid response call and 1 liter of IV fluid given. Despite that, the patient's hypotension persisted, so brought to the ICU. Currently, the patient is in a bed. Heart rate fluctuated anywhere between 64-44. The patient denies any headache, no chest pain, no abdominal pain. He is hungry, able to eat with help. The patient has no teeth. Denies any chest pain, palpitation. Denies any leg swelling. No leg pain, very poor historian. The patient initially a resident of a [facility] with above-mentioned agitation and psychiatric behavior started, so brought to the Geropsych Unit on 10/31/2017. PAST MEDICAL HISTORY: Significant for hypertension, hyperlipidemia, gastroesophageal reflux disease, chronic constipation, legally blind, psychosis, convulsions dysphagia, unsteady gait. MEDICATIONS: The patient is receiving in the Geropsych Unit include Lipitor 40 mg p.o. at bedtime and Depakote sustained release twice a day, propranolol 5 mg twice a day, Imdur 30 mg once a day, Colace 100 mg t.i.d., senna 1 tablet at bedtime, milk of magnesia 30 mL as needed, Norvasc 10 mg once a day. ALLERGIES: None. SOCIAL HISTORY: No smoking, alcohol solution. FAMILY HISTORY: Noncontributory. REVIEW OF SYSTEMS: See the history of presenting illness. PHYSICAL EXAMINATION: VITAL SIGNS: Height 1.73 meter, weight 46.2 kg, BMI 15.5. Temperature 98, afebrile, pulse 64, lowest is 44 and is fluctuating when patient sits up, the heart rate goes up to the 78, blood pressure 98/50, currently on a Levophed drip, oxygen saturation 97%. HEENT: No icterus, no pallor. Mucosa is moist. No teeth noted in oral cavity. No oral candidiasis or petechia. NECK: Supple. Significant amount of Cachexia noted with atrophy of the temporal muscles and around the clavicle muscles. LUNGS: Decreased air entry, but no rales, rhonchi. CARDIOVASCULAR: S1, S2 normal limits. No murmur, gallop or bruit. ABDOMEN: Soft, scaphoid. No hepatosplenomegaly, no rebound, no guarding, no masses. EXTREMITIES: Normal extremities examination, no leg edema noted. Dorsalis pedis palpable. Gait unable to check as the patient is on a Levophed drip. LABORATORY TESTS: WBC 8.4; hemoglobin 12.6; MCV 91; platelet count of 190,000; neutrophil 72%. Sodium 137, potassium 4.3, chloride 107, bicarbonate 23, BUN 26, normal is up to 25, creatinine 0.7 and glucose of 110, calcium of 8.5, albumin 3.8. Liver panel unremarkable. TSH 1.6 and cholesterol 101, triglyceride 41, LDL 40, HDL 44. BNP 149. Troponin x 2 is negative. KUB done on 11/10/2017 revealed diffuse distended gas filled loop in both the small and large bowel, nonspecific left upper quadrant calcification. Chest x-rays done on 11/09/2017 revealed chronic lung changes from COPD. No focal consolidation identified. The right internal jugular line tip in place superior vena cava. ASSESSMENT AND PLAN: 1. Hypotension, most likely from the volume contraction and multiple blood pressure medications. We will give IV fluid cautiously as BNP is also going up and the patient have hypertension and atherosclerotic heart disease. 2. Chronic obstructive pulmonary disease. Inhale nebulizer with DuoNeb q.i.d. and p.r.n. 3. Prerenal azotemia, very mild. We will give IV fluid and monitor BMP. 4. Gastroesophageal reflux disease. We will continue with Protonix. 5. Chronic constipation. We will continue current bowel regimen with Colace, senna and milk of magnesia. 6. Dysphagia. We will start the patient on a pureed diet and supplement with Ensure 1 can t.i.d. as the patient is also hypoalbuminemic. 7. Poor or unsteady gait. We will obtain physical therapy once the patient is off of the tips and blood pressure stabilizes and monitor orthostatic vital signs that time. 8. Legally blind. 9. Hypertension, atherosclerotic heart disease. 10. Hyperlipidemia due to the cholesterol of 101. We will discontinue the Lipitor at present time. 11. Psychosis, currently on the Depakote. We will obtain psychiatric consult and go from there. JOB# [id number]
[2017-11-10] MEDS: Albuterol/Ipratropium Neb 3 ML AERS HHN SCH ×2 (12:19→19:02)
[2017-11-11] MEDS: Sodium Chloride 0.9% 1,000 ML IV SCH ×3 (02:28→11:17)
[2017-11-11 04:21] LABS: EOSINOPHILE ABSOLUTE 0.1 Th/cmm (0.1-0.4); WHITE BLOOD COUNT 7.9 Th/cmm (4.8-10.8)
[2017-11-11 04:30] LABS: % BASOPHILS 0.5 % (0.0-2.0); % EOSINOPHILS 1.4 % (0.0-5.0); % LYMPHOCYTES 35.4 % (20.0-50.0); % MONOCYTES 7.2 % (2.0-10.0); % NEUTROPHILS 55.5 % (40.0-80.0); HEMATOCRIT 38.1 % (41.0-60); HEMOGLOBIN 13.1 gm/dL (12-16); LYMPHOCYTE ABSOLUTE 2.8 Th/cmm (1.5-3.0); MEAN CELL VOLUME 91.9 fl (80-99); MEAN CORPUSCULAR HEMOGLOBIN 31.6 pg (27.0-31.0); MEAN CORPUSCULAR HGB CONC 34.4 pg (28.0-36.0); MEAN PLATELET VOLUME 8.5 fl; MONOCYTE ABSOLUTE 0.6 Th/cmm (0.3-1.0); NEUTROPHILE ABSOLUTE 4.4 Th/cmm (1.8-8.0); PLATELET COUNT 194 Th/cmm (150-400); RED BLOOD COUNT 4.15 Mil/cmm (3.80-5.80); RED CELL DISTRIBUTION WIDTH 12.8 % (11.5-20.0)
[2017-11-11 04:38] LABS: ALB/GLOB RATIO 1.9 (1.0-1.8); ALBUMIN 3.9 gm/dL (4.2-5.5); ALKALINE PHOSPHATASE 59 U/L (34-104); AMYLASE SERUM 47 U/L (29-103); ANION GAP 10.2 (7.0-16.0); BILIRUBIN,TOTAL 0.6 mg/dL (0.3-1.0); BUN - UREA NITROGEN 18 mg/dL (7-25); CALCIUM SERUM 8.7 mg/dL (8.6-10.3); CARBON DIOXIDE 26.9 mEq/L (21.0-31.0); CHLORIDE 105 mEq/L (98-107); CREATININE - SERUM 0.7 mg/dL (0.7-1.3); GFR AFRICAN-AMERICAN > 60.0 ml/min (>90); GFR NON AFRICAN-AMERICAN > 60.0 ml/min; GLUCOSE 94 mg/dL (70-105); LIPASE 25 U/L (11-82); POTASSIUM SERUM 4.1 mEq/L (3.5-5.1); SGOT 16 U/L (13-39); SGPT/ALT 17 U/L (7-52); SODIUM SERUM 138 mEq/L (136-145)
[2017-11-11] MEDS: Albuterol/Ipratropium Neb 3 ML AERS HHN SCH ×3 (06:55→19:04)
[2017-11-11] MEDS: Aspirin 81mg Chewable Tab PO SCH (08:14)
[2017-11-11] MEDS: Multivitamin w/ Minerals Tab PO SCH (08:14)
[2017-11-11] MEDS: Pantoprazole 40 mg EC Tab PO SCH (08:14)
[2017-11-11] MEDS: Lactobacillus Rhamnosus GG 15 Billion CFU CAP.SPRINK PO SCH (08:15)
--- NOTE | 2017-11-11 08:33 | Diagnostic Imaging Report ---
CHEST X-RAY: AP view INDICATION: Hypotension COMPARISON: 11/09/2017 FINDINGS: Right IJ line is stable. Increased interstitial lung markings are noted with no focal consolidation or effusions. Heart size is normal. IMPRESSION: Increased interstitial lung markings, nonspecific. No focal consolidation is identified.
--- NOTE | 2017-11-11 16:00 | Cardiology ---
11/10/[address] Hill. M-MODE ECHOCARDIOGRAM: Mitral valve, anterior leaflet of mitral valve shows normal excursion, EF velocity. Posterior leaflet of mitral valve shows normal excursion. Left ventricular posterior wall shows increased thickness, normal excursion. Interventricular septum shows increased thickness, normal excursion, hypertrophy of the left ventricle, ejection fraction 55%. Left atrium normal. Aortic root shows normal dimension, normal excursion of aortic leaflets. CONCLUSION: Hypertrophy of the left ventricle, ejection fraction 55%. 2D ECHO: Long axis view show normal-sized left ventricle with hypertrophy of the left ventricle. Left atrium normal. Aortic root shows normal dimension, normal excursion of aortic leaflets. Short axis view of mitral valve normal. Short axis view of aortic valve normal. Apical four chamber view showed normal-sized left ventricle with hypertrophy of the left ventricle. Left atrium normal. Right ventricular cavity, right atrium normal, no pericardial effusion. CONCLUSION: Hypertrophy of the left ventricle, ejection fraction 55%. Doppler study showed trace mild mitral regurgitation, mild tricuspid regurgitation, right ventricular systolic pressure 19 mmHg. [facility]# [id number]
--- NOTE | 2017-11-11 20:26 | Progress Notes ---
DATE: 11/11/2017 SUBJECTIVE: The patient seen and examined in ICU. The patient was admitted on 11/09/2017 for hypotension. The patient is off his Levophed drip. The patient is alert, awake, more cooperative. The patient denies any chest pain, short of breath, palpitation, dizziness. The patient denies any nausea or vomiting. PHYSICAL EXAMINATION: VITAL SIGNS: Temperature 97.7, pulse 60, respiratory rate 18, blood pressure 100/60. HEENT: No facial asymmetry. NECK: Supple, palpable WHEEL ASSEMBLER shunt noted. No lymphadenopathy, thyromegaly. HEART: Both heart sounds are regular. CHEST AND LUNGS: Equal in expansion, no expiratory wheezing. ABDOMEN: Soft. No guarding, no rigidity. Bowel sounds are present. No palpable mass. EXTREMITIES: No edema. Peripheral pulses are +1. NEUROLOGIC: Alert, awake, follows command. AVAILABLE DIAGNOSTIC DATA: White count of 7.9, hemoglobin 13.1, platelet count of 194. Chemistry panels are within normal limit. Albumin of 3.9. Blood cultures so far negative for any growth. Depakote level on 11/05/2017 was 47.5. CLINICAL IMPRESSION: 1. Hypotension, status post IV Levophed, etiology secondary to sepsis. 2. ___. 3. Chronic obstructive pulmonary disease. 4. Psychotic disorder. 5. Hypertension. 6. Hyperlipidemia. 7. Degenerative joint disease. 8. Psychotic disorder. PLAN: The patient is off the Levophed drip at this time. Continue IV fluid with p.o. nutrition, antibiotic empirically with Rocephin. Continue probiotic along with other medication as the patient is receiving. Also, have psychiatrist to follow along with friction saw operator as well. We will follow the tax consultant recommendations. Care plan reviewed and discussed with RN. JOB# [id number]
--- NOTE | 2017-11-11 22:58 | Progress Notes ---
DATE: 11/11/2017 SUBJECTIVE: The patient is currently in ICU. Apparently, he was moved there because of his low blood pressure. The patient currently is more stable. Continues to be unable to carry on a conversation and make safe plan for self-care. Continues to be unpredictable, impulsive and needing redirection. He continues to have poor insight, sleeping well, eating well. No side effects with the medication, no sedation, no nausea, no extrapyramidal symptoms. PLAN: We will continue the patient in group therapy, milieu therapy, and adjust medications as needed. JOB# [id number]
[2017-11-12] MEDS: Sodium Chloride 0.9% 1,000 ML IV SCH ×2 (02:00→21:58)
[2017-11-12 04:22] LABS: % BASOPHILS 0.9 % (0.0-2.0); % EOSINOPHILS 2.5 % (0.0-5.0); % LYMPHOCYTES 35.4 % (20.0-50.0); % MONOCYTES 7.1 % (2.0-10.0); % NEUTROPHILS 54.1 % (40.0-80.0); EOSINOPHILE ABSOLUTE 0.1 Th/cmm (0.1-0.4); HEMATOCRIT 36.2 % (41.0-60); HEMOGLOBIN 12.2 gm/dL (12-16); LYMPHOCYTE ABSOLUTE 1.8 Th/cmm (1.5-3.0); MEAN CELL VOLUME 91.9 fl (80-99); MEAN CORPUSCULAR HEMOGLOBIN 30.8 pg (27.0-31.0); MEAN CORPUSCULAR HGB CONC 33.5 pg (28.0-36.0); MONOCYTE ABSOLUTE 0.4 Th/cmm (0.3-1.0); NEUTROPHILE ABSOLUTE 2.9 Th/cmm (1.8-8.0); PLATELET COUNT 155 Th/cmm (150-400); RED BLOOD COUNT 3.94 Mil/cmm (3.80-5.80); RED CELL DISTRIBUTION WIDTH 13.1 % (11.5-20.0); WHITE BLOOD COUNT 5.2 Th/cmm (4.8-10.8)
[2017-11-12 04:38] LABS: ALB/GLOB RATIO 1.8 (1.0-1.8); ALBUMIN 3.4 gm/dL (4.2-5.5); ALKALINE PHOSPHATASE 51 U/L (34-104); ANION GAP 8.8 (7.0-16.0); BILIRUBIN,TOTAL 0.5 mg/dL (0.3-1.0); BUN - UREA NITROGEN 12 mg/dL (7-25); CALCIUM SERUM 8.5 mg/dL (8.6-10.3); CARBON DIOXIDE 26.9 mEq/L (21.0-31.0); CHLORIDE 107 mEq/L (98-107); CREATININE - SERUM 0.6 mg/dL (0.7-1.3); GFR AFRICAN-AMERICAN > 60.0 ml/min (>90); GFR NON AFRICAN-AMERICAN > 60.0 ml/min; GLUCOSE 83 mg/dL (70-105); POTASSIUM SERUM 3.7 mEq/L (3.5-5.1); SGOT 17 U/L (13-39); SGPT/ALT 16 U/L (7-52); SODIUM SERUM 139 mEq/L (136-145); TOTAL PROTEIN,SERUM 5.3 gm/dL (6.0-8.3)
[2017-11-12] MEDS: Albuterol/Ipratropium Neb 3 ML AERS HHN SCH ×3 (07:11→19:40)
[2017-11-12] MEDS: Multivitamin w/ Minerals Tab PO SCH (08:16)
[2017-11-12] MEDS: Pantoprazole 40 mg EC Tab PO SCH (08:16)
[2017-11-12] MEDS: Aspirin 81mg Chewable Tab PO SCH (08:16)
[2017-11-12] MEDS: Lactobacillus Rhamnosus GG 15 Billion CFU CAP.SPRINK PO SCH (08:17)
--- NOTE | 2017-11-12 22:29 | Progress Notes ---
DATE: 11/12/2017 SUBJECTIVE: The patient seen and examined. The patient off Levophed drip. The patient currently denies any new complaint. The patient has been followed by business sales consultant as well. PHYSICAL EXAMINATION: VITAL SIGNS: Temperature 98.3, pulse 64, respiratory rate 18, and blood pressure 120/60. HEENT: No facial asymmetry. NECK: Supple, no JVD. HEART: Regular. CHEST: Lung equal in expansion, no expiratory wheezing. ABDOMEN: Soft. EXTREMITIES: Involuntary irregular movement of upper and lower noted. AVAILABLE DIAGNOSTIC DATA: White count of 5.2, hemoglobin 12.2, and platelet count of 155. BUN and creatinine is 12 and 0.6. MEDICATIONS: List has been reviewed. CLINICAL IMPRESSION: 1. Hypotension, resolved, suspect the patient's hypotension mostly related to antihypertensive medication and possible poor p.o. intake. No sign of infection. 2. Psychotic disorder. 3. Left ventricular hypertrophy by 2-D echocardiogram. 4. Hyperlipidemia. 5. History of hypertension. 6. Degenerative joint disease. 7. Chronic obstructive pulmonary disease. PLAN: 1. Transfer the patient to Med/Surg floor. 2. Increase activity. 3. Discontinue IV antibiotic. 4. Monitor blood pressure. 5. Hold antihypertensive medicine. 6. Further discharge planning to the psychiatric unit versus fpc based on the patient's psychiatrist recommendations. JOB# [id number]
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
[2017-11-13] MEDS: Albuterol/Ipratropium Neb 3 ML AERS HHN SCH ×3 (06:28→19:04)
--- NOTE | 2017-11-13 08:35 | Progress Notes ---
DATE: 11/13/2017 Case was discussed with staff of the patient, reviewed records. The patient continues to be irritable; however, this morning, he was cooperative with the staff. They were feeding him. They report he is not acting dangerously. He is transferred from ICU to telemetry. He is fed by the staff. He is compliant with the medication with no side effects. No sedation. No nausea. ____ He is off Abilify. Thank you very much for allowing me to participate in the care of this most interesting gentleman. JOB# [id number]
[2017-11-13] MEDS: Multivitamin w/ Minerals Tab PO SCH (09:09)
[2017-11-13] MEDS: Aspirin 81mg Chewable Tab PO SCH (09:09)
[2017-11-13] MEDS: Pantoprazole 40 mg EC Tab PO SCH (09:09)
[2017-11-13] MEDS: Lactobacillus Rhamnosus GG 15 Billion CFU CAP.SPRINK PO SCH (09:09)
[2017-11-13] MEDS: Sodium Chloride 0.9% 1,000 ML IV SCH (11:59)
--- NOTE | 2017-11-14 00:27 | Progress Notes ---
DATE: 11/13/2017 SUBJECTIVE: The patient seen and examined. The patient lying in the bed. The patient has no new complaint. The patient is off pressure agent. The patient now on Med/Surg telemetry status for now. Discussed with Geropsych about possible transfer to Geropsych Unit if patient is appropriate as per psychiatrist recommendation. PHYSICAL EXAMINATION: VITAL SIGNS: Temperature 97, pulse is 74, respiratory rate 18, blood pressure 120/68. HEENT: No facial asymmetry. Poor dentition. NECK: Supple, no JVD. HEART: Regular. CHEST AND LUNGS: Equal in expansion, no wheezing, no crackles. ABDOMEN: Soft. EXTREMITIES: No edema. NEUROLOGIC: Involuntary movement involving upper and lower extremity noted. AVAILABLE DIAGNOSTIC DATA: Has been reviewed. CLINICAL IMPRESSION: 1. Hypotension, resolved. 2. Psychiatric disorder. 3. Left ventricular hypertrophy. 4. Hyperlipidemia. 5. Degenerative joint disease. 6. Chronic obstructive pulmonary disease. 7. Status post CONTINUOUS MINING MACHINE COAL MINER shunt placement. 8. Fall risk. 9. Decline in self-care, mobility. PLAN: 1. The patient will be placed on Med/Surg . 2. Continue current medication as prescribed. 3. Discharge planning to Geropsych Unit versus a lower level of care considering patient remained hemodynamically stable as well. Care plan reviewed and discussed. JOB# [id number]
[2017-11-14] MEDS: Sodium Chloride 0.9% 1,000 ML IV SCH (06:09)
[2017-11-14] MEDS: Albuterol/Ipratropium Neb 3 ML AERS HHN SCH ×2 (07:07→13:25)
[2017-11-14] MEDS: Multivitamin w/ Minerals Tab PO SCH (08:48)
[2017-11-14] MEDS: Lactobacillus Rhamnosus GG 15 Billion CFU CAP.SPRINK PO SCH (08:48)
[2017-11-14] MEDS: Aspirin 81mg Chewable Tab PO SCH (08:48)
[2017-11-14] MEDS: Pantoprazole 40 mg EC Tab PO SCH (08:49)
--- NOTE | 2017-11-14 18:09 | Progress Notes ---
DATE: 11/14/2017 DATE OF EVALUATION: 11/14/2017 IDENTIFICATION: A 67-year-old male. SUBJECTIVE: The patient was seen and examined. The patient remained hemodynamically stable. Today no new complaint. OBJECTIVE: VITAL SIGNS: Temperature 96.8, pulse 74, respiratory rate 18, blood pressure 122/72. HEENT: No facial asymmetry. NECK: Supple, no JVD. HEART: Regular. CHEST: Lung equal in expansion, no expiratory wheezing. ABDOMEN: Soft. No guarding, no rigidity. Bowel sounds are present. No palpable mass. EXTREMITIES: No edema. NEUROLOGICAL: Remarkable for involuntary movements involving upper and lower extremities. CLINICAL IMPRESSION: 1. Hypotension, resolved. 2. Psychotic disorder. 3. Hyperlipidemia. 4. Degenerative joint disease. 5. High risk for fall. 6. 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 7. Debility. PLAN: Discharge planning to a lower level of care today. Discussed with RN as well as the case management. Continue current medication as prescribed. JOB# [id number]
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
== END 2017-11-14 18:30 | DRG 312 ==
LOC: ICU 20:12 → TELE 11-12 18:45
PROVIDERS: ADMIT Internal Medicine; ATTEND Internal Medicine
DX: I95.2 Hypotension due to drugs (principal); A41.9 Sepsis, unspecified organism; F23 Brief psychotic disorder; T50.905A Adverse effect of unspecified drugs, medicaments and biological substances, initial encounter; Y92.238 Other place in hospital as the place of occurrence of the external cause; J44.9 Chronic obstructive pulmonary disease, unspecified; K21.9 Gastro-esophageal reflux disease without esophagitis; N19 Unspecified kidney failure; E78.5 Hyperlipidemia, unspecified; K59.09 Other constipation; R00.1 Bradycardia, unspecified; R13.10 Dysphagia, unspecified; I25.10 Atherosclerotic heart disease of native coronary artery without angina pectoris; H54.8 Legal blindness, as defined in USA; I11.9 Hypertensive heart disease without heart failure; M19.90 Unspecified osteoarthritis, unspecified site; Z91.81 History of falling
CPT/HCPCS: 36415-UA; 71045-TC; 74000-TC; 80053-TC; 80061-TC; 82140-TC; 82150-TC; 82533-90; 82948-90; 83690-TC; 83880-TC; 84443-TC; 84484-TC; 85025-TC; 86803-90; 93005; 94640; 94760; 97530; C9113; J0696; J2405; J7030; P9045; X3904; X6452; Z7610

== ENCOUNTER 2017-11-25 10:07 | Inpatient (IN) | payer MEDICARE, MEDICAID ==
--- NOTE | 2017-11-25 10:50 | ED Physician Chart ---
ED Chief Complaint/HPI - Patient Information Date Seen:: 11/25/17 Time Seen:: 10:35 Chief Complaint:: weight loss History of Present Illness:: Patient's had a 7 pound weight loss over the last 1 month. Patient denies any particular problem at present. Allergies:: Allergies Allergy/AdvReac Type Severity Reaction Status Date / Time No Known Allergies Allergy Verified 10/31/17 20:54 Vitals:: Vital Signs - 8 hr 11/25/17 10:17 Temp 97.7 F HR 56 RR 21 BP 113/61 O2 Sat % 99 Historian:: Patient Review:: Transfer documents Reviewed ED Review of Systems - Review of Systems General/Constitutional: No fever, No chills, No weight loss, No weakness, No diaphoresis, No edema, No loss of appetite, Other (weight loss) Skin: No skin lesions, No rash, No bruising Head: No headache, No light-headedness Eyes: No loss of vision, No pain, No diplopia ENT: No earache, No nasal drainage, No sore throat, No tinnitus Neck: No neck pain, No swelling, No thyromegaly, No stiffness, No mass noted Cardio Vascular: No chest pain, No palpitations, No PND, No orthopnea, No edema Pulmonary: No SOB, No cough, No sputum, No wheezing GI: No nausea, No vomiting, No diarrhea, No pain, No melena, No hematochezia, No constipation, No hematemesis G/U: No dysuria, No frequency, No hematuria Musculoskeletal: No bone or joint pain, No back pain, No muscle pain Endocrine: No polyuria, No polydipsia Psychiatric: No prior psych history, No depression, No anxiety, No suicidal ideation Hematopoietic: No bruising, No lymphadenopathy Allergic/Immuno: No urticaria, No angioedema Neurological: No syncope, No focal symptoms, No weakness, No paresthesia, No headache, No seizure, No dizziness, No confusion, No vertigo ED Past Medical History - Past Medical History Obtainable: Yes Past Medical History: HTN, Asthma/COPD, Dyslipidemia, PUD/GERD, Seizures, Other (legally blind; psychiatric; hyperlipidemia) Family History: Other (unavailable) Social History: Care Facility Surgical History: other (unavailable) Psychiatricy History: Other (unstated psychiatric problem) Medication: Reviewed Family Medical History - Family Member Mother History Unknown: Yes Ethnicity: Non- ED Physical Exam - Physical Examination General/Constitutional: No distress Other Gen/Cons comments:: Patient is cachectic; his speech is mumbling but does state he feels all right at present Eyes: Lids, conjuctiva normal Skin: Nl inspection ENMT: External ears, nose nl Other ENMT comments:: Edentulous Neck: No nuchal rigidity Respiratory: Nl effort/Exclusion, Clear to Auscultation Cardio Vascular: RRR, No murmur, gallop, rubs GI: No tenderness/rebounding/guarding, No organomegaly, No hernia, Normal BS's, Nondistended, No mass/bruits Other GI comments:: Abdomen scaphoid : No CVA tenderness Extremities: Normal digits & nails ED Labs/Radiology/EKG Results - Lab Results Results: Laboratory Results - last 24 hr 11/25/17 11/25/17 10:55 10:55 WBC 5.5 RBC 4.24 Hgb 13.3 Hct 38.6 L MCV 91.1 MCH 31.3 H MCHC Differential 34.4 RDW 13.4 Plt Count 247 MPV 7.1 Neutrophils % 60.0 Lymphocytes % 28.0 Monocytes % 9.0 Eosinophils % 2.0 Basophils % 1.0 Sodium 140 Potassium 4.7 Chloride 107 Carbon Dioxide 26.7 Anion Gap 11.0 BUN 19 Creatinine 0.8 Est GFR ( Amer) > 60.0 Est GFR (Non-Af Amer) > 60.0 BUN/Creatinine Ratio 23.8 Glucose 80 Calcium 8.9 Total Bilirubin 0.5 AST 18 ALT 19 Alkaline Phosphatase 63 Total Protein 5.8 L Albumin 3.8 L Globulin 2.0 Albumin/Globulin Ratio 1.9 H Laboratory Results - last 24 hr 11/25/17 11/25/17 11/25/17 10:55 10:55 10:55 WBC 5.5 RBC 4.24 Hgb 13.3 Hct 38.6 L MCV 91.1 MCH 31.3 H MCHC Differential 34.4 RDW 13.4 Plt Count 247 MPV 7.1 Neutrophils % 60.0 Lymphocytes % 28.0 Monocytes % 9.0 Eosinophils % 2.0 Basophils % 1.0 Sodium 140 Potassium 4.7 Chloride 107 Carbon Dioxide 26.7 Anion Gap 11.0 BUN 19 Creatinine 0.8 Est GFR ( Amer) > 60.0 Est GFR (Non-Af Amer) > 60.0 BUN/Creatinine Ratio 23.8 Glucose 80 Calcium 8.9 Total Bilirubin 0.5 AST 18 ALT 19 Alkaline Phosphatase 63 Troponin I 0.03 Total Protein 5.8 L Albumin 3.8 L Globulin 2.0 Albumin/Globulin Ratio 1.9 H Valproic Acid 11/25/17 10:55 WBC RBC Hgb Hct MCV MCH MCHC Differential RDW Plt Count MPV Neutrophils % Lymphocytes % Monocytes % Eosinophils % Basophils % Sodium Potassium Chloride Carbon Dioxide Anion Gap BUN Creatinine Est GFR ( Amer) Est GFR (Non-Af Amer) BUN/Creatinine Ratio Glucose Calcium Total Bilirubin AST ALT Alkaline Phosphatase Troponin I Total Protein Albumin Globulin Albumin/Globulin Ratio Valproic Acid < 10.0 L ` - EKG Interpretations Rate & Rhythm: normal sinus rhythm with a rate of 55 [place]: normal Comments:: Old inferior myocardial infarction; T-wave inversions in leads V2 to V5 ED Assessment - Assessment General Assessment: Patient's EKG is impressive for old inferior myocardial infarction and inverted T waves in the anterior leads. Patient appears to have significant coronary artery disease. I spoke to Dr. Macedo and patient to be admitted to telemetry. ED Septic Shock - . Is Septic Shock (SBP<90, OR Lactate>4 mmol\L) present?: No - <6hrs of presentation: Vital Signs: Vital Signs - 8 hr 11/25/17 10:17 Temp 97.7 F HR 56 RR 21 BP 113/61 O2 Sat % 99 ED Reassessment (Disposition) - Reassessment Reassessment Condition:: Unchanged - Diagnosis Diagnosis:: Coronary artery disease; possible acute coronary syndrome; old inferior myocardial infarction; dementia - Patient Disposition Admitted to:: Telemetry Spoke to:: Crispin Macedo Admitting Medical Physician:: Crispin Macedo Condition at Disposition:: Stable, Unchanged
[2017-11-25 11:02] LABS: BASOPHILE ABSOLUTE 0.1 Th/cumm (0-0.2); EOSINOPHILE ABSOLUTE 0.1 Th/cmm (0.1-0.4); HEMATOCRIT 38.6 % (41.0-60); HEMOGLOBIN 13.3 gm/dL (12-16); LYMPHOCYTE ABSOLUTE 1.5 Th/cmm (1.5-3.0); MEAN CELL VOLUME 91.1 fl (80-99); MEAN CORPUSCULAR HEMOGLOBIN 31.3 pg (27.0-31.0); MEAN CORPUSCULAR HGB CONC 34.4 pg (28.0-36.0); MEAN PLATELET VOLUME 7.1 fl; MONOCYTE ABSOLUTE 0.5 Th/cmm (0.3-1.0); NEUTROPHILE ABSOLUTE 3.3 Th/cmm (1.8-8.0); PLATELET COUNT 247 Th/cmm (150-400); RED BLOOD COUNT 4.24 Mil/cmm (3.80-5.80); RED CELL DISTRIBUTION WIDTH 13.4 % (11.5-20.0); WHITE BLOOD COUNT 5.5 Th/cmm (4.8-10.8)
--- NOTE | 2017-11-25 11:11 | Diagnostic Imaging Report ---
Portable chest x-ray History: Shortness of breath Allowing for portable technique the heart size is normal. No focal pulmonary parenchymal processes. No hilar or mediastinal abnormalities. A right-sided vascular catheter is seen with the tip in the region of the superior vena cava Impression: No acute abnormalities.
[2017-11-25 11:16] LABS: ALB/GLOB RATIO 1.9 (1.0-1.8); ALBUMIN 3.8 gm/dL (4.2-5.5); ALKALINE PHOSPHATASE 63 U/L (34-104); BILIRUBIN,TOTAL 0.5 mg/dL (0.3-1.0); BUN - UREA NITROGEN 19 mg/dL (7-25); CALCIUM SERUM 8.9 mg/dL (8.6-10.3); CARBON DIOXIDE 26.7 mEq/L (21.0-31.0); CHLORIDE 107 mEq/L (98-107); CREATININE - SERUM 0.8 mg/dL (0.7-1.3); GFR AFRICAN-AMERICAN > 60.0 ml/min (>90); GFR NON AFRICAN-AMERICAN > 60.0 ml/min; GLUCOSE 80 mg/dL (70-105); POTASSIUM SERUM 4.7 mEq/L (3.5-5.1); SGOT 18 U/L (13-39); SGPT/ALT 19 U/L (7-52); SODIUM SERUM 140 mEq/L (136-145); TOTAL PROTEIN,SERUM 5.8 gm/dL (6.0-8.3)
[2017-11-25 18:06] VITALS: BP 103/50
[2017-11-25] MEDS ORDERED: Magnesium Hydroxide (MOM) 30 mL UDC PO PRN (21:03)
[2017-11-25 22:28] LABS: URINE MICROSCOPIC INDICATED? YES; URINE SOURCE RANDOM
[2017-11-25 22:56] LABS: URINE BILIRUBIN NEGATIVE (NEGATIVE); URINE BLOOD TRACE (NEGATIVE); URINE CLARITY CLOUDY (CLEAR); URINE COLOR YELLOW; URINE GLUCOSE (UA) NEGATIVE (NEGATIVE); URINE KETONE NEGATIVE (NEGATIVE); URINE LEUKOCYTE ESTERASE LARGE (NEGATIVE); URINE NITRATE POSITIVE (NEGATIVE); URINE PROTEIN NEGATIVE (NEGATIVE); URINE UROBILINOGEN 0.2 E.U./dL (0.2 - 1.0)
[2017-11-25 23:03] LABS: URINE BACTERIA MODERATE /hpf (NONE SEEN); URINE EPITHELIAL CELLS FEW /lpf (FEW); URINE WBC >100 /hpf (0-5)
[2017-11-26] MEDS: NITROGLYCERIN OINT 2% 1 INCH PACKET TP SCH ×4 (00:27→17:40)
[2017-11-26 05:54] LABS: % BASOPHILS 0.9 % (0.0-2.0); % EOSINOPHILS 2.9 % (0.0-5.0); % LYMPHOCYTES 35.5 % (20.0-50.0); % MONOCYTES 8.7 % (2.0-10.0); BASOPHILE ABSOLUTE 0.1 Th/cumm (0-0.2); EOSINOPHILE ABSOLUTE 0.2 Th/cmm (0.1-0.4); HEMATOCRIT 38.3 % (41.0-60); HEMOGLOBIN 12.6 gm/dL (12-16); LYMPHOCYTE ABSOLUTE 2.3 Th/cmm (1.5-3.0); MEAN CELL VOLUME 92.5 fl (80-99); MEAN CORPUSCULAR HEMOGLOBIN 30.5 pg (27.0-31.0); MEAN CORPUSCULAR HGB CONC 32.9 pg (28.0-36.0); MEAN PLATELET VOLUME 7.8 fl; MONOCYTE ABSOLUTE 0.6 Th/cmm (0.3-1.0); NEUTROPHILE ABSOLUTE 3.2 Th/cmm (1.8-8.0); PLATELET COUNT 242 Th/cmm (150-400); RED BLOOD COUNT 4.13 Mil/cmm (3.80-5.80); RED CELL DISTRIBUTION WIDTH 13.4 % (11.5-20.0); WHITE BLOOD COUNT 6.4 Th/cmm (4.8-10.8)
[2017-11-26 06:13] LABS: ALB/GLOB RATIO 1.7 (1.0-1.8); ALBUMIN 3.5 gm/dL (4.2-5.5); ALKALINE PHOSPHATASE 61 U/L (34-104); ANION GAP 11.2 (7.0-16.0); BILIRUBIN,TOTAL 0.4 mg/dL (0.3-1.0); BUN - UREA NITROGEN 25 mg/dL (7-25); CALCIUM SERUM 8.7 mg/dL (8.6-10.3); CARBON DIOXIDE 25.9 mEq/L (21.0-31.0); CHLORIDE 110 mEq/L (98-107); CHOLESTEROL 92 mg/dL (<200); CREATININE - SERUM 0.7 mg/dL (0.7-1.3); GFR AFRICAN-AMERICAN > 60.0 ml/min (>90); GFR NON AFRICAN-AMERICAN > 60.0 ml/min; GLUCOSE 92 mg/dL (70-105); HDL -HIGH DENSITY LIPOPROTEIN 46 mg/dL (23-92); MAGNESIUM 2.2 mg/dL (1.9-2.7); POTASSIUM SERUM 5.1 mEq/L (3.5-5.1); SGOT 23 U/L (13-39); SGPT/ALT 23 U/L (7-52); SODIUM SERUM 142 mEq/L (136-145); TOTAL PROTEIN,SERUM 5.6 gm/dL (6.0-8.3); TRIGLYCERIDES 53 mg/dL (<150)
[2017-11-26] MEDS: Multivitamin w/ Minerals Tab PO SCH (09:25)
[2017-11-26] MEDS: Pantoprazole 40 mg EC Tab PO SCH (09:25)
[2017-11-26] MEDS: Aspirin 81mg Chewable Tab PO SCH (09:25)
[2017-11-26] MEDS: Lactobacillus Rhamnosus GG 15 Billion CFU CAP.SPRINK PO SCH (09:25)
[2017-11-26] MEDS: cefTRIAXone 1 GM in Sodium Chloride 0.9% 50 ML IV SCH (11:21)
--- NOTE | 2017-11-26 13:54 | History & Physical ---
ADMIT DATE: MEDICAL HISTORY AND PHYSICAL PATIENT'S IDENTIFICATION: A 67-year-old male. 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 Noted by nursing staff that the patient was not eating and he was losing weight and also there is a question about the chest pain was noted as well. The patient was sent to Emergency Room and Emergency Room MD initially evaluated the patient and called ____ and he admitted the patient. Subsequently I was told to admit this patient when the patient was already admitted by ____. The patient did have apparently EKG, which reported a significant amount of abnormality associated with bradycardia. The patient is a poor historian. PAST MEDICAL HISTORY: Remarkable for: 1. COPD. 2. Psychotic disorder. 3. Hypertension. 4. Hyperlipidemia. 5. Seizure disorder. 6. 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 MEDICATIONS: List has been reviewed and reconciled. ALLERGIES: The patient is not allergic to any medications. SOCIAL HISTORY: He is a resident of [facility]. No smoking cigarette, alcohol or drug use. FAMILY MEDICAL HISTORY: Unavailable. REVIEW OF SYSTEMS: Unable to get meaningful history from the patient. PHYSICAL EXAMINATION: GENERAL: Alert, awake, lying in the bed. VITAL SIGNS: Temperature 97.7, pulse is 46, respiratory rate is 18, blood pressure is 113/60. HEENT: Normocephalic, atraumatic. Extraocular muscles intact. Tongue more pink and coated. Absent upper and lower dentition noted. NECK: Supple, no JVD. No hepatojugular reflex. No lymphadenopathy. Palpable HOOP COILING MACHINE OPERATOR shunt noted. HEART: Both heart sounds are regular. CHEST AND LUNGS: Equal in expansion, no expiratory wheezing. ABDOMEN: Soft. No guarding, rigidity. Bowel sounds present. No palpable mass. EXTREMITIES: No edema, no cyanosis. Peripheral pulses are +1. No calf tenderness. NEUROLOGIC: Alert, awake, follows commands, involuntary movement involving upper and lower extremity noted. AVAILABLE DIAGNOSTIC DATA: EKG, normal sinus rhythm at a rate of 55. T-wave inversion in lead V2, V3 noted along with T-wave in lead II, III and aVF. No ST elevation noted. Chest x-ray; no infiltrate, no congestion. White count of 5.5, hemoglobin 13.3, platelet count of 247, BUN and creatinine are normal. Albumin of 3.8. Urinalysis remarkable, positive for nitrites. CLINICAL IMPRESSION: 1. Abnormal EKG, questionable chest pain, poor historian, difficult to determine if the patient really had chest pain or not. 2. Poor p.o. intake. 3. Complicated urinary tract infection. 4. Bradycardia. 5. Hypertension by history. 6. Degenerative joint disease. 7. Status post ventriculoperitoneal shunt placement. 8. Psychotic disorder. 9. Chronic obstructive pulmonary disease. PLAN: The patient is admitted to telemetry unit. Provide oxygen. Cardiac enzymes, Cardiology consultation. Hold beta chasity. Gave IV antibiotic. Appropriate home medicine reconciliation. Nutritional support. General nursing care and make decision about his bradycardia if the patient needs pacemaker or not. We will follow Cardiology's recommendation as well. Care plan reviewed and discussed. [facility]# [id number]
[2017-11-26] MEDS: Atorvastatin Calcium 10 MG TAB PO SCH (21:06)
[2017-11-26] MEDS: Docusate Sodium/Senna Tab PO SCH (21:06)
[2017-11-27] MEDS: NITROGLYCERIN OINT 2% 1 INCH PACKET TP SCH ×4 (00:04→17:05)
--- NOTE | 2017-11-27 00:29 | Consultation ---
DATE OF CONSULTATION: 11/26/2017 PATIENT OF: Dr. Hill. HISTORY AND PHYSICAL: This is a 67-year-old male patient who has been losing weight. Following this, the patient came to the Emergency Room. The patient then complained of chest pain and hence cardiac consult is requested. PAST MEDICAL HISTORY: Old myocardial infarction, hypertension, COPD, hyperlipidemia, seizure disorder, legally blind, and major depression. FAMILY HISTORY: Unremarkable. SOCIAL HISTORY: No history of smoking, alcohol abuse. ALLERGIES: No known allergies. PHYSICAL EXAMINATION: VITAL SIGNS: Blood pressure 113/61, pulse 50, and respirations 20. HEAD: Normocephalic. No lumps or bumps. EYES: Pupils equal, reactive to light. Fundi show AV nicking, sclerae white, conjunctivae pink. NECK: Carotid 2+. Normal upstroke. JVD flat. Thyroid not palpable. Lymph nodes not palpable. CHEST: Shows increased AP diameter. No kyphosis, scoliosis. LUNGS: Bilateral bronchovesicular breath sounds. HEART: PMI fifth intercostal space with lateral to midclavicular line. S1, S2. No S3. Soft S4, sinus bradycardia. ABDOMEN: Soft. Liver, spleen not palpable. No organomegaly. Bowel sounds active. NEUROLOGIC: Unremarkable. EXTREMITIES: Peripheral pulses 2+. No pedal edema. CLINICAL IMPRESSION: Chest pain, unlikely coronary artery disease, old myocardial infarction, inferior wall; hypertension, chronic obstructive pulmonary disease, hyperlipidemia, seizure disorder, legally blind, and major depression. PLAN: Admit the patient. We will get troponin level, EKG, echocardiogram, and monitor the patient. JOB# [id number]
[2017-11-27 07:10] LABS: % BASOPHILS 0.2 % (0.0-2.0); % EOSINOPHILS 2.4 % (0.0-5.0); % LYMPHOCYTES 41.2 % (20.0-50.0); % MONOCYTES 7.9 % (2.0-10.0); % NEUTROPHILS 48.3 % (40.0-80.0); EOSINOPHILE ABSOLUTE 0.1 Th/cmm (0.1-0.4); HEMATOCRIT 38.3 % (41.0-60); HEMOGLOBIN 13.1 gm/dL (12-16); LYMPHOCYTE ABSOLUTE 2.3 Th/cmm (1.5-3.0); MEAN CELL VOLUME 93.1 fl (80-99); MEAN CORPUSCULAR HEMOGLOBIN 31.8 pg (27.0-31.0); MEAN CORPUSCULAR HGB CONC 34.2 pg (28.0-36.0); MEAN PLATELET VOLUME 7.7 fl; MONOCYTE ABSOLUTE 0.4 Th/cmm (0.3-1.0); NEUTROPHILE ABSOLUTE 2.8 Th/cmm (1.8-8.0); PLATELET COUNT 229 Th/cmm (150-400); RED BLOOD COUNT 4.11 Mil/cmm (3.80-5.80); RED CELL DISTRIBUTION WIDTH 13.5 % (11.5-20.0); WHITE BLOOD COUNT 5.6 Th/cmm (4.8-10.8)
[2017-11-27 07:36] LABS: ALB/GLOB RATIO 1.9 (1.0-1.8); ALBUMIN 3.7 gm/dL (4.2-5.5); ALKALINE PHOSPHATASE 56 U/L (34-104); ANION GAP 12.1 (7.0-16.0); BILIRUBIN,TOTAL 0.5 mg/dL (0.3-1.0); BUN - UREA NITROGEN 26 mg/dL (7-25); CALCIUM SERUM 8.5 mg/dL (8.6-10.3); CARBON DIOXIDE 24.1 mEq/L (21.0-31.0); CHLORIDE 106 mEq/L (98-107); CREATININE - SERUM 0.8 mg/dL (0.7-1.3); GFR AFRICAN-AMERICAN > 60.0 ml/min (>90); GFR NON AFRICAN-AMERICAN > 60.0 ml/min; GLUCOSE 87 mg/dL (70-105); POTASSIUM SERUM 4.2 mEq/L (3.5-5.1); SGOT 24 U/L (13-39); SGPT/ALT 20 U/L (7-52); SODIUM SERUM 138 mEq/L (136-145); TOTAL PROTEIN,SERUM 5.7 gm/dL (6.0-8.3)
[2017-11-27] MEDS: Multivitamin w/ Minerals Tab PO SCH (08:45)
[2017-11-27] MEDS: Pantoprazole 40 mg EC Tab PO SCH (08:45)
[2017-11-27] MEDS: Aspirin 81mg Chewable Tab PO SCH (08:45)
[2017-11-27] MEDS: Lactobacillus Rhamnosus GG 15 Billion CFU CAP.SPRINK PO SCH (08:45)
[2017-11-27] MEDS: cefTRIAXone 1 GM in Sodium Chloride 0.9% 50 ML IV SCH (09:54)
--- NOTE | 2017-11-27 16:24 | Progress Notes ---
DATE: 11/27/2017 SUBJECTIVE: The patient seen and examined. The patient is lying in the bed. PHYSICAL EXAMINATION: VITAL SIGNS: The patient continued to remain bradycardia with blood pressure of 96/50. HEENT: No facial asymmetry. NECK: Supple, no JVD. HEART: Regular. CHEST AND LUNGS: Equal in expansion, no expiratory wheezing. ABDOMEN: Soft, no guarding or rigidity. Bowel sounds present. No palpable mass. EXTREMITIES: No edema. AVAILABLE DIAGNOSTIC DATA: White count of 5.6, hemoglobin 13.1, and platelet count of 229, BUN and creatinine is 26 and 0.8. CLINICAL IMPRESSION: 1. Bradycardia. 2. Urinary tract infection. 3. Poor p.o. intake. 4. Chronic obstructive pulmonary disease. 5. Degenerative joint disease. 6. Psychotic disorder. 7. Status post SUPERVISOR TAPING shunt placement. 8. Coronary artery disease. PLAN: 1. IV antibiotic. 2. Theophylline has been added by the province archivist to increase the heart rate. 3. Cardiac monitoring. 4. Increase activity. 5. General nursing care. 6. Nutritional support. 7. PT/OT. 8. Follow lab. 9. Follow eco industrial development consultant's recommendation. 10. Care plan reviewed and discussed with staff. JOB# [id number]
[2017-11-27] MEDS: Theophylline 100 mg ER Tab PO SCH (16:53)
[2017-11-27] MEDS: Docusate Sodium/Senna Tab PO SCH (21:28)
[2017-11-27] MEDS: Atorvastatin Calcium 10 MG TAB PO SCH (21:28)
[2017-11-28] MEDS: NITROGLYCERIN OINT 2% 1 INCH PACKET TP SCH ×3 (03:21→12:38)
[2017-11-28] MEDS: Aspirin 81mg Chewable Tab PO SCH (09:25)
[2017-11-28] MEDS: Multivitamin w/ Minerals Tab PO SCH (09:25)
[2017-11-28] MEDS: Lactobacillus Rhamnosus GG 15 Billion CFU CAP.SPRINK PO SCH (09:25)
[2017-11-28] MEDS: Pantoprazole 40 mg EC Tab PO SCH (09:25)
[2017-11-28] MEDS: Theophylline 100 mg ER Tab PO SCH (09:26)
--- NOTE | 2017-11-28 11:16 | Discharge Summary ---
DATE OF DISCHARGE: 11/28/2017 DATE OF DISCHARGE: 11/28/2017. PRINCIPAL DIAGNOSES: 1. Sinus bradycardia, most likely secondary to sinus node dysfunction, remain asymptomatic, recommended theophylline to be used. 2. Urinary tract infection, complicated type. 3. Chest pain. 4. Coronary artery disease. 5. Hyperlipidemia. 6. Chronic obstructive pulmonary disease. 7. Poor p.o. intake secondary to urinary tract infection. 8. Degenerative joint disease. 9. Psychotic disorder. BRIEF STATEMENT FOR THE REASON FOR ADMISSION: A 67-year-old resident of [facility] sent to Emergency Room for evaluation of abnormal EKG, poor p.o. intake and questionable chest pain since the patient was a poor historian. The patient was seen by Emergency Room MD and subsequently admitted to the hospital for further treatment. Please refer to my H and P for further information. HOSPITAL COURSE: The patient was admitted to telemetry unit. The patient had 3 sets of cardiac enzymes, which were negative for acute myocardial infarction. The patient was seen by cloth reeler. The patient was advised to have no significant intervention since the patient's blood pressure remained stable and the patient was asymptomatic, recommended that the patient should be treated with p.o. theophylline. The patient was also noted to have urinary tract infection, which was started with IV antibiotic. Appropriate home medicine was reconciled as well. The patient was improving slowly to the extent that the patient can be discharged to home. The patient is discharged to [facility] today in stable condition. The patient is to be followed by myself in [facility]. At the time of discharge, all of his meds were reconciled. [facility]# [id number]
[2017-11-28] MEDS: cefTRIAXone 1 GM in Sodium Chloride 0.9% 50 ML IV SCH (12:39)
--- NOTE | 2017-11-28 17:34 | Progress Notes ---
DATE: 11/28/2017 SUBJECTIVE: The patient seen and examined. The patient lying in the bed. The patient is asymptomatic. The patient does have bradycardia according to chainstitch felled seam operator. The patient does not need any intervention. The patient noted to have urinary tract infection. The patient is currently on IV Rocephin. The patient is eating better. The patient denies any new complaint. PHYSICAL EXAMINATION: VITAL SIGNS: Temperature 97.7, pulse is 50, respiratory rate 18, blood pressure 103/58. HEENT: Poor dentition. NECK: Supple, no JVD. HEART: Regular. CHEST AND LUNGS: Equal in expansion, no expiratory wheezing. ABDOMEN: Soft. EXTREMITIES: No edema. NEUROLOGIC: No gross deficit noted. CLINICAL IMPRESSION: 1. Chest pain, rule out myocardial infarction. 2. Bradycardia, asymptomatic, treated with p.o. theophylline as per chainstitch felled seam operator. 3. Urinary tract infection. 4. Poor p.o. intake, probably from urinary tract infection. 5. Chronic obstructive pulmonary disease. 6. Hyperlipidemia. 7. Degenerative joint disease. 8. Coronary artery disease. 9. Psychotic disorder. 10. 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 PLAN: Discharge the patient to assisted today. The patient will be followed by myself, discharge summaries done. JOB# [id number]
== END 2017-11-28 17:00 | DRG 690 ==
LOC: ER 10:07 → TELE 13:35
PROVIDERS: ADMIT Internal Medicine; ATTEND Internal Medicine
DX: N39.0 Urinary tract infection, site not specified (principal); E44.0 Moderate protein-calorie malnutrition; R64 Cachexia; Z68.1 Body mass index [BMI] 19.9 or less, adult; I49.5 Sick sinus syndrome; I10 Essential (primary) hypertension; M19.90 Unspecified osteoarthritis, unspecified site; J44.9 Chronic obstructive pulmonary disease, unspecified; E78.5 Hyperlipidemia, unspecified; F32.9 Major depressive disorder, single episode, unspecified; K21.9 Gastro-esophageal reflux disease without esophagitis; H54.8 Legal blindness, as defined in USA; I25.10 Atherosclerotic heart disease of native coronary artery without angina pectoris; F03.90 Unspecified dementia, unspecified severity, without behavioral disturbance, psychotic disturbance, mood disturbance, and anxiety; I25.2 Old myocardial infarction; Z98.2 Presence of cerebrospinal fluid drainage device; G40.909 Epilepsy, unspecified, not intractable, without status epilepticus; F29 Unspecified psychosis not due to a substance or known physiological condition
CPT/HCPCS: 36415-UA; 71045-TC; 80053-TC; 80061-TC; 80164-TC; 81001-TC; 83735-TC; 84443-TC; 84484-TC; 85025-TC; 87086-90; 93005; 97530; J0696; X3904; Z7610